=== PATIENT | female | born 1950 | race Caucasian/White ===

== ENCOUNTER → 2017-04-03 | Outpatient (CLI) | payer MEDICARE, MEDICAID ==
[~2017-04-03] MED LIST: ASPI325T92 PO; ATOR20TA9 PO; DOCU-30 PO; DOCU100C8 PO; HYDR-3307 PO; INSU100I28 SQ-INSULIN; INSU100V13 SQ; LISI-167 PO; METF100010 PO; METF500T4 PO; ONDA4TAB10 PO; OXYC5CAP4 PO; POLY17PO5 PO; TIOT18CA INH
== END | disposition home or self-care (01) ==
LOC: CFH 06:38
PROVIDERS: ATTEND Nurse Practitioner
DX: S83.281A Other tear of lateral meniscus, current injury, right knee, initial encounter (principal); M71.21 Synovial cyst of popliteal space [Baker], right knee; M17.11 Unilateral primary osteoarthritis, right knee; M25.461 Effusion, right knee; X58.XXXA Exposure to other specified factors, initial encounter; Y93.89 Activity, other specified; Y92.89 Other specified places as the place of occurrence of the external cause; Y99.8 Other external cause status

== ENCOUNTER → 2017-11-13 | Outpatient (CLI) | payer MEDICARE, MEDICAID ==
[~2017-11-13] MED LIST changes: +DOCU-131 PO; -DOCU-30 PO; +DOCU100C33 PO; -DOCU100C8 PO; +OMNIPAQUE 350 MG/ML, 75ML BOTTLE ONE; +OXYC5CAP2 PO; -OXYC5CAP4 PO
== END | disposition home or self-care (01) ==
LOC: CFH 14:55
PROVIDERS: ATTEND Thoracic Surgery (Cardiothoracic Vascular Surgery)
DX: J43.9 Emphysema, unspecified (principal); J98.11 Atelectasis; C34.31 Malignant neoplasm of lower lobe, right bronchus or lung; Z98.890 Other specified postprocedural states
CPT/HCPCS: 71260; 82565; Q9967

== ENCOUNTER 2018-01-23 08:05 | Inpatient (IN) | payer MEDICARE, MEDICAID ==
[~2018-01-23] VITALS: Ht 162.6 cm; Wt 116.7 kg
[~2018-01-23 08:05] MED LIST changes: -OMNIPAQUE 350 MG/ML, 75ML BOTTLE ONE
[2018-01-23] MEDS ORDERED: SODIUM CHLORIDE 0.9% 1,000ML IVBOLUS ONE (09:00)
[2018-01-23] MEDS ORDERED: MORPHINE SULFATE 4 MG/ML, 1ML IVPush PRN (09:00)
[2018-01-23] MEDS ORDERED: ONDANSETRON ODT 4 MG PO ONE (09:00)
[2018-01-23] MEDS ORDERED: MORPHINE SULFATE 4 MG/ML, 1ML ONE ×4 (09:08→21:28)
[2018-01-23] MEDS ORDERED: ONDANSETRON ODT 4 MG ONE (09:08)
[2018-01-23 09:11] LABS: ALANINE AMINOTRANSFERASE 22 U/L (12-78); ALBUMIN 3.4 g/dL (3.4-5.0); ANION GAP 8 mmol/L (5-15); CALCIUM 8.8 mg/dL (8.5-10.1); CHLORIDE 105 mmol/L (98-107); CREATININE 0.91 mg/dL (0.55-1.02)
[2018-01-23 09:13] LABS: ALKALINE PHOSPHATASE 77 U/L (45-117); BILIRUBIN,TOTAL 0.6 mg/dL (0.2-1.0); TOTAL PROTEIN 7.2 g/dL (6.4-8.2)
[2018-01-23 09:28] LABS: BASOPHILS # (AUTO) 0.01 x10^3/uL (0-0.1); BASOPHILS % (AUTO) 0 % (0-1); EOSINOPHILS # (AUTO) 0.04 x10^3/uL (0-0.4); EOSINOPHILS % (AUTO) 0 % (1-7); LYMPHOCYTES # (AUTO) 0.87 x10^3/uL (1-3.4); LYMPHOCYTES % (AUTO) 8 % (22-44); MD NO; MEAN CORPUSCULAR HEMOGLOBIN 28.8 pg (27.0-34.8); MEAN CORPUSCULAR HGB CONC 32.7 g/dL (32.4-35.8); MEAN PLATELET VOLUME 7.9 fL (7.4-10.4); MONOCYTES % (AUTO) 3 % (2-9); NEUTROPHILS # (AUTO) 9.19 x10^3/uL (1.8-6.8); NEUTROPHILS % (AUTO) 88 % (42-75); PLATELET COUNT 192 x10^3/uL (130-400); RED BLOOD COUNT 4.97 x10^6/uL (3.82-5.3); RED CELL DISTRIBUTION WIDTH 15.5 % (9.6-15.2)
[2018-01-23] MEDS ORDERED: OMNIPAQUE 350 MG/ML, 100ML BOTTLE ONE (09:44)
[2018-01-23 10:30] LABS: MICROSCOPIC INDICATED
[2018-01-23 10:34] LABS: CULTURE INDICATED? YES
[2018-01-23] MEDS ORDERED: JENUVIA PO (10:48)
[2018-01-23] MEDS ORDERED: DICL50TA2 PO (10:48)
[2018-01-23] MEDS ORDERED: CEFTRIAXONE PMX 1GM/50ML 50 ML ONE (10:54)
[2018-01-23] MEDS ORDERED: CEFTRIAXONE PMX 1GM/50ML 50 ML IV ONE (11:00)
[2018-01-23] MEDS ORDERED: SODIUM CHLORIDE FLUSH 10ML SYR IVF PRN (11:30)
[2018-01-23] MEDS ORDERED: D5%-0.45NACL+KCL 20MEQ 1,000 ML IV SCH (12:04)
[2018-01-23] MEDS ORDERED: DEXTROSE 50%, 50ML SYRINGE IVPush PRN (12:30)
[2018-01-23] MEDS ORDERED: BISACODYL 10 MG SUPP PR PRN (12:30)
[2018-01-23] MEDS ORDERED: GLUCAGON 1 MG IM PRN (12:30)
[2018-01-23] MEDS ORDERED: LABETALOL 5MG/ML, 20ML IVPush PRN (12:30)
[2018-01-23] MEDS ORDERED: ACETAMINOPHEN 325 MG TABLET PO PRN (12:30)
[2018-01-23] MEDS ORDERED: POLYETHYLENE GLYCOL 17 GM PACKET PO PRN (12:30)
[2018-01-23] MEDS ORDERED: DOCUSATE 100 MG CAPSULE PO PRN (12:30)
[2018-01-23] MEDS ORDERED: DEXTROSE 4 GM TAB.CHEW PO PRN (12:30)
[2018-01-23] MEDS ORDERED: SITAGLIPTIN 50MG TABLET PO SCH (12:30)
[2018-01-23] MEDS ORDERED: hydrALAzine 20 MG/ML, 1ML IVPush PRN (12:30)
[2018-01-23] MEDS ORDERED: IPRATROPIUM 0.5 MG/2.5 ML INHA NPPB SCH (12:30)
[2018-01-23] MEDS ORDERED: ONDANSETRON 2MG/ML, 2ML IVPush PRN (12:30)
[2018-01-23] MEDS: ENOXAPARIN 40 MG/0.4 ML SQ SCH (12:45)
[2018-01-23 12:51] VITALS: BP 124/74
[2018-01-23] MEDS: INSULIN LISPRO 100 UNITS/ML, PEN SQ-INSULIN SCH ×3 (12:51→21:02)
[2018-01-23] MEDS: morphine SULFATE 10 MG/ML, 1ML IVPush PRN ×3 (13:11→21:45)
[2018-01-23] MEDS ORDERED: ALBUTEROL SULFATE 2.5 MG/3 ML NPPB PRN (13:30)
[2018-01-23 18:58] VITALS: BP 116/74
[2018-01-23] MEDS: SODIUM CHLORIDE FLUSH 10ML SYR IVF SCH (21:00)
[2018-01-23] MEDS ORDERED: ATORVASTATIN 20 MG TABLET PO SCH (21:00)
[2018-01-23] MEDS ORDERED: DICLOFENAC 50 MG TABLET.DR PO SCH (21:00)
[2018-01-23] MEDS: INSULIN GLARGINE 100 UNITS/ML, PEN SQ-INSULIN SCH (21:44)
[2018-01-24 00:19] VITALS: BP 109/69
[2018-01-24 05:17] LABS: CHLORIDE 109 mmol/L (98-107)
[2018-01-24 05:34] LABS: ANION GAP 6 mmol/L (5-15); CALCIUM 7.7 mg/dL (8.5-10.1); CREATININE 0.73 mg/dL (0.55-1.02)
[2018-01-24] MEDS: D5%-0.45NACL+KCL 20MEQ 1,000 ML IV SCH ×3 (06:33→23:13)
[2018-01-24] MEDS: SODIUM CHLORIDE FLUSH 10ML SYR IVF SCH ×2 (07:06→21:00)
[2018-01-24] MEDS: INSULIN LISPRO 100 UNITS/ML, PEN SQ-INSULIN SCH ×4 (07:06→21:00)
[2018-01-24 07:34] VITALS: BP 113/74
[2018-01-24] MEDS: FLUTICASONE/VILANTEROL 200-25MCG/INH INH SCH (09:42)
[2018-01-24] MEDS: INSULIN GLARGINE 100 UNITS/ML, PEN SQ-INSULIN SCH ×2 (09:44→21:16)
[2018-01-24] MEDS ORDERED: D5%-0.45NACL+KCL 20MEQ 1,000 ML IV SCH (12:04)
[2018-01-24] MEDS: ENOXAPARIN 40 MG/0.4 ML SQ SCH (12:12)
[2018-01-24] MEDS: KETOROLAC 30 MG/1 ML IVPush PRN ×2 (12:13→20:59)
[2018-01-24 15:24] VITALS: BP 115/80
[2018-01-24 19:15] VITALS: BP 124/79
[2018-01-25 02:10] VITALS: BP 117/81
[2018-01-25 05:50] LABS: ALANINE AMINOTRANSFERASE 17 U/L (12-78); ALBUMIN 2.6 g/dL (3.4-5.0); CALCIUM 7.8 mg/dL (8.5-10.1)
[2018-01-25 05:53] LABS: ALKALINE PHOSPHATASE 57 U/L (45-117); BILIRUBIN,TOTAL 0.5 mg/dL (0.2-1.0); CREATININE 0.78 mg/dL (0.55-1.02); TOTAL PROTEIN 5.7 g/dL (6.4-8.2)
[2018-01-25 06:01] LABS: ANION GAP 4 mmol/L (5-15); CHLORIDE 108 mmol/L (98-107)
[2018-01-25] MEDS: D5%-0.45NACL+KCL 20MEQ 1,000 ML IV SCH ×2 (06:26→17:46)
[2018-01-25] MEDS: INSULIN LISPRO 100 UNITS/ML, PEN SQ-INSULIN SCH ×4 (06:32→20:21)
[2018-01-25 07:25] VITALS: BP 130/80
[2018-01-25] MEDS: INSULIN GLARGINE 100 UNITS/ML, PEN SQ-INSULIN SCH ×2 (08:51→21:30)
[2018-01-25] MEDS: FLUTICASONE/VILANTEROL 200-25MCG/INH INH SCH (08:51)
[2018-01-25] MEDS: SODIUM CHLORIDE FLUSH 10ML SYR IVF SCH ×2 (08:51→20:20)
[2018-01-25] MEDS: ENOXAPARIN 40 MG/0.4 ML SQ SCH (12:23)
[2018-01-25 12:30] VITALS: BP 125/84
[2018-01-25] MEDS ORDERED: BISACODYL 10 MG SUPP PR PRN (17:00)
[2018-01-25 19:31] VITALS: BP 145/86
[2018-01-25] MEDS: FAMOTIDINE 20 MG/2 ML IVPush SCH (21:30)
[2018-01-26] MEDS: D5%-0.45NACL+KCL 20MEQ 1,000 ML IV SCH ×2 (01:23→09:30)
[2018-01-26 01:40] VITALS: BP 145/83
[2018-01-26 06:46] LABS: ANION GAP 4 mmol/L (5-15); CALCIUM 8.5 mg/dL (8.5-10.1); CHLORIDE 107 mmol/L (98-107); CREATININE 0.72 mg/dL (0.55-1.02)
[2018-01-26] MEDS: INSULIN LISPRO 100 UNITS/ML, PEN SQ-INSULIN SCH ×4 (07:00→21:00)
[2018-01-26] MEDS: SODIUM CHLORIDE FLUSH 10ML SYR IVF SCH ×2 (07:23→20:06)
[2018-01-26 07:30] VITALS: BP 134/83
[2018-01-26] MEDS: FLUTICASONE/VILANTEROL 200-25MCG/INH INH SCH (09:00)
[2018-01-26] MEDS: FAMOTIDINE 20 MG/2 ML IVPush SCH ×2 (09:15→20:06)
[2018-01-26] MEDS: INSULIN GLARGINE 100 UNITS/ML, PEN SQ-INSULIN SCH ×2 (09:24→22:06)
[2018-01-26] MEDS: ACETAMINOPHEN 325 MG TABLET PO PRN (10:13)
[2018-01-26] MEDS ORDERED: SODIUM CHLORIDE 0.9% 1,000 ML IV SCH (11:30)
[2018-01-26 12:19] VITALS: BP 134/89
[2018-01-26 12:24] VITALS: BP 148/105
[2018-01-26] MEDS ORDERED: NITROFURANTOIN (MACROBID) 100 MG CAPSULE PO ONE (12:53)
[2018-01-26] MEDS: ENOXAPARIN 40 MG/0.4 ML SQ SCH (13:00)
[2018-01-26 19:52] VITALS: BP 137/70
[2018-01-26] MEDS: SODIUM CHLORIDE 0.9% 1,000 ML IV SCH (20:06)
[2018-01-26] MEDS: NITROFURANTOIN (MACROBID) 100 MG CAPSULE PO SCH (20:08)
[2018-01-27 01:40] VITALS: BP 120/70
[2018-01-27] MEDS: ACETAMINOPHEN 325 MG TABLET PO PRN ×2 (05:25→20:54)
[2018-01-27] MEDS: SODIUM CHLORIDE 0.9% 1,000 ML IV SCH ×3 (05:25→22:00)
[2018-01-27 05:47] LABS: ANION GAP 4 mmol/L (5-15); CALCIUM 8.1 mg/dL (8.5-10.1); CHLORIDE 109 mmol/L (98-107); CREATININE 0.66 mg/dL (0.55-1.02)
[2018-01-27 07:34] VITALS: BP 129/65
[2018-01-27] MEDS: INSULIN LISPRO 100 UNITS/ML, PEN SQ-INSULIN SCH ×4 (07:36→21:00)
[2018-01-27] MEDS: FLUTICASONE/VILANTEROL 200-25MCG/INH INH SCH (09:13)
[2018-01-27] MEDS: SODIUM CHLORIDE FLUSH 10ML SYR IVF SCH ×2 (09:13→21:00)
[2018-01-27] MEDS: FAMOTIDINE 20 MG/2 ML IVPush SCH (09:13)
[2018-01-27] MEDS: NITROFURANTOIN (MACROBID) 100 MG CAPSULE PO SCH ×2 (09:14→20:51)
[2018-01-27] MEDS: INSULIN GLARGINE 100 UNITS/ML, PEN SQ-INSULIN SCH ×2 (09:14→20:50)
[2018-01-27] MEDS: ENOXAPARIN 40 MG/0.4 ML SQ SCH (12:36)
[2018-01-27 13:28] VITALS: BP 117/75
[2018-01-27 18:55] VITALS: BP 126/74
[2018-01-27] MEDS: FAMOTIDINE 20 MG TABLET PO SCH (20:51)
[2018-01-28 01:52] VITALS: BP 149/87
[2018-01-28] MEDS: SODIUM CHLORIDE 0.9% 1,000 ML IV SCH (06:00)
[2018-01-28 07:10] VITALS: BP 144/80
[2018-01-28] MEDS ORDERED: NITR100C6 PO (07:14)
[2018-01-28] MEDS: INSULIN LISPRO 100 UNITS/ML, PEN SQ-INSULIN SCH ×2 (07:22→11:24)
[2018-01-28] MEDS: INSULIN GLARGINE 100 UNITS/ML, PEN SQ-INSULIN SCH (07:48)
[2018-01-28] MEDS: FAMOTIDINE 20 MG TABLET PO SCH (07:48)
[2018-01-28] MEDS: NITROFURANTOIN (MACROBID) 100 MG CAPSULE PO SCH (07:48)
[2018-01-28] MEDS: ACETAMINOPHEN 325 MG TABLET PO PRN (07:48)
[2018-01-28] MEDS: SODIUM CHLORIDE FLUSH 10ML SYR IVF SCH (07:50)
[2018-01-28] MEDS: FLUTICASONE/VILANTEROL 200-25MCG/INH INH SCH (07:51)
[2018-01-28] MEDS: ENOXAPARIN 40 MG/0.4 ML SQ SCH (12:30)
[2018-01-28 12:43] VITALS: BP 134/85
== END 2018-01-28 13:10 | disposition home or self-care (01) | DRG 388 ==
LOC: ED 09:53 → EDIP 11:27 → 4NOR 12:14 → DCLOUNGE 01-28 12:57 → UNDODISIN 01-28 12:57
PROVIDERS: ADMIT Family Medicine; ATTEND Family Medicine
PROC: 0D9670Z Drainage of Stomach with Drainage Device, Via Natural or Artificial Opening (ICD-10-PCS; principal; 2018-01-23)
DX: K56.600 Partial intestinal obstruction, unspecified as to cause (principal); R53.2 Functional quadriplegia; E11.8 Type 2 diabetes mellitus with unspecified complications; Z99.81 Dependence on supplemental oxygen; E66.01 Morbid (severe) obesity due to excess calories; N30.00 Acute cystitis without hematuria; Z68.41 Body mass index [BMI] 40.0-44.9, adult; J44.9 Chronic obstructive pulmonary disease, unspecified; Z90.710 Acquired absence of both cervix and uterus; Z87.891 Personal history of nicotine dependence; Z85.118 Personal history of other malignant neoplasm of bronchus and lung; Z79.4 Long term (current) use of insulin; Z98.1 Arthrodesis status; K80.20 Calculus of gallbladder without cholecystitis without obstruction; K57.30 Diverticulosis of large intestine without perforation or abscess without bleeding; I25.10 Atherosclerotic heart disease of native coronary artery without angina pectoris; Z88.8 Allergy status to other drugs, medicaments and biological substances; K59.00 Constipation, unspecified; Z82.49 Family history of ischemic heart disease and other diseases of the circulatory system; Z83.6 Family history of other diseases of the respiratory system
CPT/HCPCS: 36415; 74018; 74177; 80048; 80053; 81001; 82962; 83690; 83735; 84443; 85025; 87077; 87086; 87186; J0696; J1650; J1885; J2405; Q0162; Q9967; J1815; J2270; J3480; J7030; S0028

== ENCOUNTER → 2018-10-20 | Outpatient (CLI) | payer MEDICARE, MEDICAID ==
[~2018-10-20] MED LIST changes: +ATOR20TA37 PO; -ATOR20TA9 PO; +DICL50TA2 PO; +JENUVIA PO; +METF500T17 PO; -METF500T4 PO; +NITR100C6 PO; +OMNIPAQUE 350 MG/ML, 75ML BOTTLE ONE
== END | disposition home or self-care (01) ==
LOC: CFH 11:57
PROVIDERS: ATTEND Thoracic Surgery (Cardiothoracic Vascular Surgery)
DX: J84.10 Pulmonary fibrosis, unspecified (principal)
CPT/HCPCS: 71260; Q9967

== ENCOUNTER 2020-01-05 10:21 | Inpatient (IN) | payer MEDICARE, MEDICAID ==
[~2020-01-05] VITALS: Ht 162.6 cm; Wt 117.0 kg
[~2020-01-05 10:21] MED LIST changes: -HYDR-3307 PO; +HYDR-36 PO; -OMNIPAQUE 350 MG/ML, 75ML BOTTLE ONE
[2020-01-05] MEDS ORDERED: SODIUM CHLORIDE 0.9% 1,000ML IVBOLUS ONE (11:00)
[2020-01-05] MEDS ORDERED: SODIUM CHLORIDE FLUSH 10ML SYR IVF ONE (11:00)
[2020-01-05] MEDS ORDERED: ALBUTEROL SULFATE 2.5 MG/3 ML NPPB ONE (11:00)
[2020-01-05] MEDS ORDERED: CEFTRIAXONE PMX 1GM/50ML 50 ML IVPB ONE (11:00)
[2020-01-05] MEDS ORDERED: methylPREDNISolone SOD SUCC 125 MG/2 ML IVPush SCH (11:00)
[2020-01-05] MEDS ORDERED: methylPREDNISolone SOD SUCC 125 MG/2 ML IVPush ONE (11:00)
[2020-01-05] MEDS ORDERED: ALBUTEROL/IPRATROPIUM 2.5MG/0.5MG, 3 ML NEB ONE (11:00)
[2020-01-05] MEDS ORDERED: AZITHROMYCIN 500 MG in SODIUM CHLORIDE 0.9% 250 ML IV ONE ×2 (11:00→19:45)
[2020-01-05 11:43] LABS: BASOPHILS # (AUTO) 0.02 x10^3/uL (0-0.1); BASOPHILS % (AUTO) 0 % (0-1); EOSINOPHILS % (AUTO) 2 % (1-7); LYMPHOCYTES % (AUTO) 11 % (22-44); MD NO; MEAN CORPUSCULAR HEMOGLOBIN 29.8 pg (27.0-34.8); MEAN CORPUSCULAR HGB CONC 32.4 g/dL (32.4-35.8); MEAN CORPUSCULAR VOLUME 92.1 fL (80-100); MEAN PLATELET VOLUME 7.6 fL (7.4-10.4); MONOCYTES # (AUTO) 0.43 x10^3/uL (0.2-0.8); MONOCYTES % (AUTO) 7 % (2-9); NEUTROPHILS # (AUTO) 5.33 x10^3/uL (1.8-6.8); NEUTROPHILS % (AUTO) 81 % (42-75); PLATELET COUNT 178 x10^3/uL (130-400); RED BLOOD COUNT 4.57 x10^6/uL (3.82-5.3); RED CELL DISTRIBUTION WIDTH 14.4 % (9.6-15.2)
[2020-01-05 11:51] LABS: ALBUMIN 3.3 g/dL (3.4-5.0); ANION GAP 4 mmol/L (5-15); CALCIUM 8.7 mg/dL (8.5-10.1); CHLORIDE 107 mmol/L (98-107); CREATININE 0.79 mg/dL (0.55-1.02)
[2020-01-05] MEDS ORDERED: BISACODYL 10 MG SUPP PR PRN (13:00)
[2020-01-05] MEDS ORDERED: DOCUSATE 100 MG CAPSULE PO PRN (13:00)
[2020-01-05] MEDS ORDERED: DEXTROSE 50%, 50ML SYRINGE IVPush PRN (13:00)
[2020-01-05] MEDS ORDERED: ACETAMINOPHEN 325 MG TABLET PO PRN (13:00)
[2020-01-05] MEDS: TEMPLATE NON-FORMULARY MED. (Tiotropium Bromide** (Spiriva**) 18 MCG) INH SCH (13:00)
[2020-01-05] MEDS ORDERED: GLUCAGON 1 MG IM PRN (13:00)
[2020-01-05] MEDS ORDERED: DEXTROSE 4 GM TAB.CHEW PO PRN (13:00)
[2020-01-05] MEDS ORDERED: methylPREDNISolone SOD SUCC 125 MG/2 ML ONE (13:05)
[2020-01-05] MEDS ORDERED: CEFTRIAXONE PMX 1GM/50ML 50 ML ONE (13:05)
--- NOTE | 2020-01-05 13:29 | NUR ---
REPORT GIVEN TO MARCIO ASHLEY. PT UPDATED ON PROCESS. DENIES ANY NEEDS OR CONCERNS AT THIS TIME, CALL LIGHT IN REACH.
[2020-01-05 14:06] VITALS: BP 131/73
[2020-01-05] MEDS ORDERED: ALBUTEROL SULFATE 2.5 MG/3 ML NEB PRN ×2 (14:30→15:30)
[2020-01-05 15:51] LABS: MICROSCOPIC AUTO
[2020-01-05] MEDS: INSULIN LISPRO 100 UNITS/ML, PEN SQ-INSULIN SCH ×2 (16:00→21:00)
[2020-01-05] MEDS ORDERED: INSULIN REGULAR 100 UNITS/ML, 3ML VIAL SQ-INSULIN SCH (16:00)
[2020-01-05 16:04] LABS: CULTURE INDICATED? YES
[2020-01-05] MEDS: GUAIFENESIN/DM 200-20MG, 10ML UDC PO PRN (18:32)
[2020-01-05] MEDS: SODIUM CHLORIDE FLUSH 10ML SYR IVF SCH (20:49)
[2020-01-05] MEDS: ATORVASTATIN 20 MG TABLET PO SCH (20:50)
[2020-01-05] MEDS: ENOXAPARIN 40 MG/0.4 ML SQ SCH (20:50)
[2020-01-05 22:02] VITALS: BP 119/70
[2020-01-06 01:25] VITALS: BP 119/60
[2020-01-06 06:42] LABS: BASOPHILS # (AUTO) 0.01 x10^3/uL (0-0.1); BASOPHILS % (AUTO) 0 % (0-1); EOSINOPHILS # (AUTO) 0.02 x10^3/uL (0-0.4); EOSINOPHILS % (AUTO) 0 % (1-7); LYMPHOCYTES % (AUTO) 9 % (22-44); MD NO; MEAN CORPUSCULAR HEMOGLOBIN 29.8 pg (27.0-34.8); MEAN CORPUSCULAR HGB CONC 32.3 g/dL (32.4-35.8); MEAN CORPUSCULAR VOLUME 92.1 fL (80-100); MEAN PLATELET VOLUME 7.9 fL (7.4-10.4); MONOCYTES # (AUTO) 0.24 x10^3/uL (0.2-0.8); MONOCYTES % (AUTO) 4 % (2-9); NEUTROPHILS # (AUTO) 4.84 x10^3/uL (1.8-6.8); NEUTROPHILS % (AUTO) 86 % (42-75); PLATELET COUNT 187 x10^3/uL (130-400); RED BLOOD COUNT 4.49 x10^6/uL (3.82-5.3); RED CELL DISTRIBUTION WIDTH 14.6 % (9.6-15.2)
[2020-01-06 06:46] LABS: ALANINE AMINOTRANSFERASE 24 U/L (12-78); ALBUMIN 3.2 g/dL (3.4-5.0); ANION GAP 2 mmol/L (5-15); CALCIUM 9.1 mg/dL (8.5-10.1); CHLORIDE 107 mmol/L (98-107)
[2020-01-06 06:49] LABS: ALKALINE PHOSPHATASE 70 U/L (45-117); BILIRUBIN,TOTAL 0.4 mg/dL (0.2-1.0); CREATININE 0.68 mg/dL (0.55-1.02); TOTAL PROTEIN 7.1 g/dL (6.4-8.2)
[2020-01-06 07:02] LABS: RAPID INFLUENZA A Negative (Negative); RAPID INFLUENZA B Negative (Negative)
[2020-01-06] MEDS ORDERED: AZITHROMYCIN 250 MG TABLET PO SCH (09:00)
[2020-01-06] MEDS: SODIUM CHLORIDE FLUSH 10ML SYR IVF SCH ×2 (09:42→21:18)
[2020-01-06] MEDS: INSULIN LISPRO 100 UNITS/ML, PEN SQ-INSULIN SCH ×4 (09:42→23:06)
[2020-01-06 10:06] VITALS: BP 117/43
[2020-01-06] MEDS: GUAIFENESIN/DM 200-20MG, 10ML UDC PO PRN ×2 (10:15→23:07)
[2020-01-06] MEDS: IBUPROFEN 600 MG TABLET PO PRN ×2 (10:15→18:43)
[2020-01-06] MEDS: TEMPLATE NON-FORMULARY MED. (Tiotropium Bromide** (Spiriva**) 18 MCG) INH SCH (10:23)
[2020-01-06] MEDS: CEFTRIAXONE PMX 1GM/50ML 50 ML IV SCH (13:45)
[2020-01-06 14:03] VITALS: BP 137/69
[2020-01-06 19:30] VITALS: BP 129/74
[2020-01-06] MEDS: ENOXAPARIN 40 MG/0.4 ML SQ SCH (21:18)
[2020-01-06] MEDS: AZITHROMYCIN 250 MG TABLET PO SCH (21:18)
[2020-01-06] MEDS: ATORVASTATIN 20 MG TABLET PO SCH (21:18)
[2020-01-07 01:37] VITALS: BP 125/66
[2020-01-07] MEDS: INSULIN LISPRO 100 UNITS/ML, PEN SQ-INSULIN SCH ×2 (07:00→11:52)
[2020-01-07] MEDS: SODIUM CHLORIDE FLUSH 10ML SYR IVF SCH (08:26)
[2020-01-07] MEDS: TEMPLATE NON-FORMULARY MED. (Tiotropium Bromide** (Spiriva**) 18 MCG) INH SCH (08:26)
[2020-01-07] MEDS: AZITHROMYCIN 250 MG TABLET PO SCH (08:27)
[2020-01-07 08:40] VITALS: BP 145/75
[2020-01-07] MEDS: IBUPROFEN 600 MG TABLET PO PRN (08:44)
[2020-01-07] MEDS: CEFTRIAXONE PMX 1GM/50ML 50 ML IV SCH (12:23)
[2020-01-07] MEDS ORDERED: AZIT250T89 PO (12:47)
[2020-01-07] MEDS ORDERED: CEFD300C37 PO (12:47)
[2020-01-07] MEDS ORDERED: ALBU2.5V INH (12:47)
[2020-01-07] MEDS ORDERED: PRED20TA PO (12:48)
[2020-01-07] MEDS ORDERED: ENOXAPARIN 30 MG/0.3 ML SQ SCH (17:00)
[2020-01-18] MEDS ORDERED: ALBU2.5V INH (14:31)
== END 2020-01-07 16:00 | disposition home or self-care (01) | DRG 190 ==
LOC: ED 10:42 → EDIP 12:23 → 3WST 13:45
PROVIDERS: ADMIT Family Medicine; ATTEND Family Medicine
DX: J44.0 Chronic obstructive pulmonary disease with (acute) lower respiratory infection (principal); J18.9 Pneumonia, unspecified organism; N39.0 Urinary tract infection, site not specified; J44.1 Chronic obstructive pulmonary disease with (acute) exacerbation; R09.02 Hypoxemia; Z79.4 Long term (current) use of insulin; Z85.118 Personal history of other malignant neoplasm of bronchus and lung; Z87.891 Personal history of nicotine dependence; Z99.81 Dependence on supplemental oxygen; E11.9 Type 2 diabetes mellitus without complications; Z03.818 Encounter for observation for suspected exposure to other biological agents ruled out
CPT/HCPCS: 36415; 80048; 80053; 81001; 82040; 82962; 83605; 84145; 85025; 87040; 87086; 87400; 96374; 99285; G0378; J0456; J0696; J1650; J1815; J2930; J7030; J7050; J7512

== ENCOUNTER 2020-01-10 12:30 | Inpatient (IN) | payer MEDICARE, MEDICAID ==
[~2020-01-10] VITALS: Ht 162.6 cm; Wt 105.2 kg
[~2020-01-10 12:30] MED LIST changes: +ALBU2.5V INH; +AZIT250T89 PO; +CEFD300C37 PO; +PRED20TA PO
--- NOTE | 2020-01-10 12:45 | NUR ---
Increasing SOB x 2 days. Recent admission for PNX, went home on oral abx. Had neg. covid 19 swab on 01/04. Using home oxygen & nebs as directed. Arrives tachypneic @ 25/min, 88% RA sat but pt is supposed to be on continuous home O2. 95% on nl 3 liters. EKG done, cardiac, NIBP & SPO2 monitors IP.
--- NOTE | 2020-01-10 12:56 | NUR ---
Pt updated on POC for readmission after labs/x-rays complete. Mild SOB, able to speak full sentences. Await [facility] from pharmacy. Call light within reach.
[2020-01-10] MEDS ORDERED: SODIUM CHLORIDE FLUSH 10ML SYR IVF ONE (13:00)
[2020-01-10] MEDS ORDERED: ALBUTEROL SULFATE 2.5 MG/3 ML NPPB SCH (13:00)
[2020-01-10 13:04] LABS: BASOPHILS # (AUTO) 0.04 x10^3/uL (0-0.1); BASOPHILS % (AUTO) 1 % (0-1); EOSINOPHILS # (AUTO) 0.05 x10^3/uL (0-0.4); EOSINOPHILS % (AUTO) 1 % (1-7); LYMPHOCYTES % (AUTO) 25 % (22-44); MD NO; MEAN CORPUSCULAR HEMOGLOBIN 29.8 pg (27.0-34.8); MEAN CORPUSCULAR HGB CONC 32.8 g/dL (32.4-35.8); MEAN PLATELET VOLUME 7.8 fL (7.4-10.4); MONOCYTES # (AUTO) 0.36 x10^3/uL (0.2-0.8); MONOCYTES % (AUTO) 5 % (2-9); NEUTROPHILS # (AUTO) 5.39 x10^3/uL (1.8-6.8); NEUTROPHILS % (AUTO) 70 % (42-75); PLATELET COUNT 139 x10^3/uL (130-400); RED BLOOD COUNT 4.49 x10^6/uL (3.82-5.3)
[2020-01-10 13:05] LABS: ALANINE AMINOTRANSFERASE 47 U/L (12-78); ALBUMIN 3.1 g/dL (3.4-5.0); CREATININE 0.84 mg/dL (0.55-1.02)
[2020-01-10] MEDS ORDERED: ONDANSETRON 2MG/ML, 2ML ONE (13:05)
[2020-01-10 13:10] LABS: ALKALINE PHOSPHATASE 68 U/L (45-117); BILIRUBIN,TOTAL 0.2 mg/dL (0.2-1.0); TOTAL PROTEIN 6.7 g/dL (6.4-8.2); TROPONIN I < 0.015 ng/mL (0.000-0.045)
[2020-01-10 13:19] LABS: ANION GAP 3 mmol/L (5-15); CHLORIDE 102 mmol/L (98-107)
--- NOTE | 2020-01-10 13:20 | NUR ---
Pt medicated as per emar for nausea. Self-administered 2 puffs from MDI
[2020-01-10] MEDS ORDERED: ONDANSETRON 2MG/ML, 2ML IVPush ONE (13:30)
[2020-01-10] MEDS ORDERED: ALBUTEROL HFA 90 MCG/SPRAY INH PRN (13:30)
--- NOTE | 2020-01-10 14:44 | NUR ---
Report given to Chel BUCKLEY.
[2020-01-10] MEDS ORDERED: LABETALOL 5MG/ML, 20ML IVPush PRN (15:30)
[2020-01-10] MEDS ORDERED: GLUCAGON 1 MG IM PRN (15:30)
[2020-01-10] MEDS ORDERED: POLYETHYLENE GLYCOL 17 GM PACKET PO PRN (15:30)
[2020-01-10] MEDS ORDERED: ALBUTEROL SULFATE 2.5 MG/3 ML NEB PRN (15:30)
[2020-01-10] MEDS ORDERED: ONDANSETRON ODT 4 MG PO PRN (15:30)
[2020-01-10] MEDS ORDERED: DOCUSATE 100 MG CAPSULE PO PRN (15:30)
[2020-01-10] MEDS ORDERED: DEXTROSE 4 GM TAB.CHEW PO PRN (15:30)
[2020-01-10] MEDS ORDERED: DEXTROSE 50%, 50ML SYRINGE IVPush PRN (15:30)
[2020-01-10 15:36] VITALS: BP 131/82
[2020-01-10] MEDS: INSULIN LISPRO 100 UNITS/ML, PEN SQ-INSULIN SCH ×2 (16:00→20:57)
[2020-01-10] MEDS: AMPICILLIN/SULBACTAM 3 GM in SODIUM CHLORIDE 0.9% 100 ML IV SCH ×2 (16:16→21:31)
[2020-01-10] MEDS: ENOXAPARIN 40 MG/0.4 ML SQ SCH (16:22)
[2020-01-10] MEDS: IBUPROFEN 600 MG TABLET PO PRN (16:28)
[2020-01-10 18:38] VITALS: BP 111/65
[2020-01-10] MEDS: SODIUM CHLORIDE FLUSH 10ML SYR IVF SCH (21:00)
[2020-01-10] MEDS: ATORVASTATIN 20 MG TABLET PO SCH (21:31)
[2020-01-10] MEDS: INSULIN GLARGINE 100 UNITS/ML, PEN SQ-INSULIN SCH (21:32)
[2020-01-11 00:39] VITALS: BP 129/73
[2020-01-11] MEDS: AMPICILLIN/SULBACTAM 3 GM in SODIUM CHLORIDE 0.9% 100 ML IV SCH ×4 (03:30→21:34)
[2020-01-11 05:57] LABS: BASOPHILS # (AUTO) 0.03 x10^3/uL (0-0.1); BASOPHILS % (AUTO) 1 % (0-1); EOSINOPHILS # (AUTO) 0.13 x10^3/uL (0-0.4); EOSINOPHILS % (AUTO) 2 % (1-7); LYMPHOCYTES % (AUTO) 22 % (22-44); MD NO; MEAN CORPUSCULAR HEMOGLOBIN 30.1 pg (27.0-34.8); MEAN CORPUSCULAR HGB CONC 32.8 g/dL (32.4-35.8); MEAN CORPUSCULAR VOLUME 91.8 fL (80-100); MEAN PLATELET VOLUME 7.6 fL (7.4-10.4); MONOCYTES # (AUTO) 0.38 x10^3/uL (0.2-0.8); MONOCYTES % (AUTO) 6 % (2-9); NEUTROPHILS # (AUTO) 4.75 x10^3/uL (1.8-6.8); NEUTROPHILS % (AUTO) 70 % (42-75); PLATELET COUNT 120 x10^3/uL (130-400); RED BLOOD COUNT 3.89 x10^6/uL (3.82-5.3); RED CELL DISTRIBUTION WIDTH 14.2 % (9.6-15.2)
[2020-01-11 06:04] LABS: ALANINE AMINOTRANSFERASE 50 U/L (12-78); ALBUMIN 2.6 g/dL (3.4-5.0); ANION GAP 3 mmol/L (5-15); CALCIUM 8.4 mg/dL (8.5-10.1); CHLORIDE 104 mmol/L (98-107); CREATININE 0.86 mg/dL (0.55-1.02)
[2020-01-11 06:06] LABS: ALKALINE PHOSPHATASE 62 U/L (45-117); BILIRUBIN,TOTAL 0.3 mg/dL (0.2-1.0); TOTAL PROTEIN 5.7 g/dL (6.4-8.2)
[2020-01-11] MEDS: INSULIN LISPRO 100 UNITS/ML, PEN SQ-INSULIN SCH ×4 (07:00→20:37)
[2020-01-11 07:22] VITALS: BP 122/83
[2020-01-11] MEDS: AZITHROMYCIN 250 MG TABLET PO SCH (08:57)
[2020-01-11] MEDS: ACETAMINOPHEN 325 MG TABLET PO PRN (08:57)
[2020-01-11] MEDS ORDERED: TEMPLATE NON-FORMULARY MED. (Tiotropium Bromide** (Spiriva**) 18 MCG) INH SCH (09:00)
[2020-01-11] MEDS: SODIUM CHLORIDE FLUSH 10ML SYR IVF SCH ×2 (09:00→20:36)
[2020-01-11] MEDS: INSULIN GLARGINE 100 UNITS/ML, PEN SQ-INSULIN SCH ×2 (09:01→20:37)
[2020-01-11 14:02] VITALS: BP 139/73
[2020-01-11] MEDS ORDERED: IPRATROPIUM 0.5 MG/2.5 ML INHA NPPB SCH (15:00)
[2020-01-11] MEDS: ENOXAPARIN 40 MG/0.4 ML SQ SCH (15:21)
[2020-01-11 18:49] VITALS: BP 129/71
[2020-01-11] MEDS ORDERED: ALBUTEROL/IPRATROPIUM 2.5MG/0.5MG, 3 ML NPPB PRN (20:00)
[2020-01-11] MEDS: FAMOTIDINE 10 MG TAB PO SCH (20:37)
[2020-01-11] MEDS: ATORVASTATIN 20 MG TABLET PO SCH (20:37)
[2020-01-11 23:19] VITALS: BP 159/87
[2020-01-12 00:05] VITALS: BP 132/78
[2020-01-12 00:24] LABS: TROPONIN I < 0.015 ng/mL (0.000-0.045)
[2020-01-12] MEDS: IBUPROFEN 600 MG TABLET PO PRN ×2 (01:37→23:19)
[2020-01-12] MEDS: AMPICILLIN/SULBACTAM 3 GM in SODIUM CHLORIDE 0.9% 100 ML IV SCH (03:18)
[2020-01-12 05:32] LABS: BASOPHILS # (AUTO) 0.01 x10^3/uL (0-0.1); BASOPHILS % (AUTO) 0 % (0-1); EOSINOPHILS # (AUTO) 0.04 x10^3/uL (0-0.4); EOSINOPHILS % (AUTO) 1 % (1-7); LYMPHOCYTES # (AUTO) 1.23 x10^3/uL (1-3.4); LYMPHOCYTES % (AUTO) 18 % (22-44); MD NO; MEAN CORPUSCULAR HEMOGLOBIN 29.7 pg (27.0-34.8); MEAN CORPUSCULAR HGB CONC 32.6 g/dL (32.4-35.8); MEAN CORPUSCULAR VOLUME 91.2 fL (80-100); MEAN PLATELET VOLUME 7.8 fL (7.4-10.4); MONOCYTES # (AUTO) 0.35 x10^3/uL (0.2-0.8); MONOCYTES % (AUTO) 5 % (2-9); NEUTROPHILS # (AUTO) 5.12 x10^3/uL (1.8-6.8); NEUTROPHILS % (AUTO) 76 % (42-75); PLATELET COUNT 112 x10^3/uL (130-400); RED BLOOD COUNT 3.85 x10^6/uL (3.82-5.3); RED CELL DISTRIBUTION WIDTH 14.1 % (9.6-15.2)
[2020-01-12 05:41] LABS: ALANINE AMINOTRANSFERASE 38 U/L (12-78); ALBUMIN 2.7 g/dL (3.4-5.0); ANION GAP 3 mmol/L (5-15); CALCIUM 8.6 mg/dL (8.5-10.1); CHLORIDE 105 mmol/L (98-107); CREATININE 0.67 mg/dL (0.55-1.02)
[2020-01-12 05:45] LABS: ALKALINE PHOSPHATASE 53 U/L (45-117); BILIRUBIN,TOTAL 0.4 mg/dL (0.2-1.0); TOTAL PROTEIN 5.7 g/dL (6.4-8.2); TROPONIN I < 0.015 ng/mL (0.000-0.045)
[2020-01-12] MEDS: INSULIN LISPRO 100 UNITS/ML, PEN SQ-INSULIN SCH ×4 (07:00→20:30)
[2020-01-12 07:10] VITALS: BP 152/86
[2020-01-12] MEDS: SODIUM CHLORIDE FLUSH 10ML SYR IVF SCH ×2 (07:27→20:30)
[2020-01-12] MEDS: AZITHROMYCIN 250 MG TABLET PO SCH (08:23)
[2020-01-12] MEDS: AMOXICILLIN/CLAV 875-125MG TABLET PO SCH ×2 (08:23→20:29)
[2020-01-12] MEDS: FAMOTIDINE 10 MG TAB PO SCH ×2 (08:23→20:29)
[2020-01-12] MEDS: INSULIN GLARGINE 100 UNITS/ML, PEN SQ-INSULIN SCH ×2 (08:26→20:29)
[2020-01-12 12:35] VITALS: BP 137/84
[2020-01-12] MEDS: ENOXAPARIN 40 MG/0.4 ML SQ SCH (16:38)
[2020-01-12 18:47] VITALS: BP 133/76
[2020-01-12] MEDS: ATORVASTATIN 20 MG TABLET PO SCH (20:29)
[2020-01-13 00:51] VITALS: BP 132/76
[2020-01-13 05:16] LABS: BASOPHILS # (AUTO) 0.01 x10^3/uL (0-0.1); BASOPHILS % (AUTO) 0 % (0-1); EOSINOPHILS # (AUTO) 0.02 x10^3/uL (0-0.4); EOSINOPHILS % (AUTO) 0 % (1-7); LYMPHOCYTES # (AUTO) 1.33 x10^3/uL (1-3.4); LYMPHOCYTES % (AUTO) 15 % (22-44); MD NO; MEAN CORPUSCULAR HEMOGLOBIN 29.5 pg (27.0-34.8); MEAN CORPUSCULAR HGB CONC 32.2 g/dL (32.4-35.8); MEAN CORPUSCULAR VOLUME 91.7 fL (80-100); MEAN PLATELET VOLUME 7.6 fL (7.4-10.4); MONOCYTES # (AUTO) 0.29 x10^3/uL (0.2-0.8); MONOCYTES % (AUTO) 3 % (2-9); NEUTROPHILS # (AUTO) 7.07 x10^3/uL (1.8-6.8); NEUTROPHILS % (AUTO) 81 % (42-75); PLATELET COUNT 130 x10^3/uL (130-400); RED BLOOD COUNT 4.03 x10^6/uL (3.82-5.3); RED CELL DISTRIBUTION WIDTH 14.3 % (9.6-15.2)
[2020-01-13 05:24] LABS: CHLORIDE 105 mmol/L (98-107)
[2020-01-13 05:29] LABS: ALANINE AMINOTRANSFERASE 33 U/L (12-78); ALBUMIN 2.8 g/dL (3.4-5.0); ALKALINE PHOSPHATASE 56 U/L (45-117); ANION GAP 3 mmol/L (5-15); BILIRUBIN,TOTAL 0.3 mg/dL (0.2-1.0); CALCIUM 8.8 mg/dL (8.5-10.1); CREATININE 0.73 mg/dL (0.55-1.02); TOTAL PROTEIN 5.8 g/dL (6.4-8.2)
[2020-01-13] MEDS: IBUPROFEN 600 MG TABLET PO PRN ×2 (05:57→11:53)
[2020-01-13] MEDS: INSULIN LISPRO 100 UNITS/ML, PEN SQ-INSULIN SCH ×2 (07:00→11:51)
[2020-01-13] MEDS: SODIUM CHLORIDE FLUSH 10ML SYR IVF SCH (07:32)
[2020-01-13] MEDS: FAMOTIDINE 10 MG TAB PO SCH (07:44)
[2020-01-13] MEDS: AMOXICILLIN/CLAV 875-125MG TABLET PO SCH (07:44)
[2020-01-13] MEDS: AZITHROMYCIN 250 MG TABLET PO SCH (07:44)
[2020-01-13] MEDS: INSULIN GLARGINE 100 UNITS/ML, PEN SQ-INSULIN SCH (07:47)
[2020-01-13 08:00] VITALS: BP 144/85
[2020-01-13] MEDS ORDERED: TIOT18CA INH (11:51)
[2020-01-13] MEDS ORDERED: AMOX1TAB12 PO (11:51)
[2020-01-13] MEDS ORDERED: ALBU2.5V INH (11:51)
[2020-01-13] MEDS ORDERED: AZIT250T89 PO (11:51)
[2020-01-13] MEDS: ACETAMINOPHEN 325 MG TABLET PO PRN (11:53)
[2020-01-13] MEDS ORDERED: PRED20TA PO (11:54)
[2020-01-13] MEDS: ENOXAPARIN 40 MG/0.4 ML SQ SCH (14:24)
[2020-01-18] MEDS ORDERED: ALBU2.5V INH (14:31)
== END 2020-01-13 15:14 | disposition home or self-care (01) | DRG 177 ==
LOC: ED 12:52 → 3N 14:10
PROVIDERS: ADMIT Internal Medicine; ATTEND Internal Medicine
DX: J15.8 Pneumonia due to other specified bacteria (principal); J96.21 Acute and chronic respiratory failure with hypoxia; J44.1 Chronic obstructive pulmonary disease with (acute) exacerbation; J44.0 Chronic obstructive pulmonary disease with (acute) lower respiratory infection; J15.9 Unspecified bacterial pneumonia; E78.5 Hyperlipidemia, unspecified; E66.9 Obesity, unspecified; I25.10 Atherosclerotic heart disease of native coronary artery without angina pectoris; Z68.39 Body mass index [BMI] 39.0-39.9, adult; Z79.4 Long term (current) use of insulin; Z85.118 Personal history of other malignant neoplasm of bronchus and lung; Z87.891 Personal history of nicotine dependence; Z98.1 Arthrodesis status; Z99.81 Dependence on supplemental oxygen; Z88.8 Allergy status to other drugs, medicaments and biological substances; Z83.3 Family history of diabetes mellitus; Z82.49 Family history of ischemic heart disease and other diseases of the circulatory system
CPT/HCPCS: 36415; 71045; 80053; 82962; 84145; 84484; 85025; 93005; 96374; 99285; G0378; J0295; J1650; J2405; J1815; J7512